=== PATIENT | female | born 1995 | race Caucasian/White ===

== ENCOUNTER → 2020-06-13 | Outpatient (CLI) | payer BC ==
[2020-06-13 14:35] LABS: Basophils % (A) 0 %; Eosinophils # (A) 0.1 k/uL (0-0.7); Eosinophils % (A) 0 %; HCT 40.8 % (34.0-46.0); HGB 13.4 gm/dL (11.4-16.0); Lymphocytes # (A) 1.6 k/uL (1.0-4.8); Lymphocytes % (A) 10 %; MCH 29.3 pg (25.0-35.0); MCHC 32.7 g/dL (31.0-37.0); MCV 89.6 fL (80.0-100.0); Mean Platelet Volume 7.6; Monocytes # (A) 0.4 k/uL (0-1.0); Monocytes % (A) 3 %; Neutrophils # (A) 13.5 k/uL (1.3-7.7); Neutrophils % (A) 86 %; Platelet Count 257 k/uL (150-450); RBC 4.55 m/uL (3.80-5.40); RDW 12.7 % (11.5-15.5); WBC 15.7 k/uL (3.8-10.6)
[2020-06-13 20:47] LABS: Gliadin AB IgA, Deaminated NEGATIVE (NEGATIVE); Gliadin AB IgA, Unit 8.1 U/mL; Gliadin AB IgG, Deaminated NEGATIVE (NEGATIVE)
== END | disposition home or self-care (01) ==
LOC: LABWHC1 13:33
PROVIDERS: ATTEND Allergy & Immunology
DX: T78.2XXA Anaphylactic shock, unspecified, initial encounter (principal); R19.7 Diarrhea, unspecified; R10.9 Unspecified abdominal pain
CPT/HCPCS: 36415; 82784; 82785; 83516; 83520; 85025

== ENCOUNTER 2021-04-14 19:23 | Outpatient (CLI) | payer BC, MEDICAID ==
[2021-04-14 19:47] LABS: Appearance,Urine Cloudy (Clear); Bacteria,Urine Occasional /hpf; Bilirubin,Urine Negative (Negative); Blood,Urine Negative (Negative); Color,Urine Yellow; Glucose,Urine (UA) Negative (Negative); Hyaline Casts,Urine 1 /lpf (0-2); Ketones,Urine Negative (Negative); Leukocyte Esterase,Urine Small (Negative); Mucus,Urine Few /hpf; Nitrite,Urine Negative (Negative); PH, Urine 6.5 (5.0-8.0); Protein,Urine Trace (Negative); RBC,Urine 2 /hpf (0-5); Specific Gravity,Urine 1.021 (1.001-1.035); Squamous Epithelial Cell,Urine 4 /hpf (0-4); Urobilinogen,Urine <2.0 mg/dL (<2.0); WBC,Urine 4 /hpf (0-5)
[2021-04-14 20:45] VITALS: BP 128/72; PULSE 76; RESP 16; TEMP 96.3
--- NOTE | 2021-04-26 10:56 | P.MSEPDOC ---
Presenting Problems - Arrival Data Date of Arrival on Unit: 04/14/21 Time of Arrival on Unit: 19:23 Mode of Transport: Ambulatory - Complaint OB-Reason for Admission/Chief Complaint: Pain Comment: Patient arrives to triage with complaints of right lower abdominal cramping. since 1744. Patient had called and spoke to Dr. Malcolm. Dr. Malcolm would like a UA sent and a NST and then to be called with results. Medical History - Information : 1 Para: 0 Term: 0 : 0 Abortions: Spontaneous or Elective: 0 Number of Living Children: 0 - Gestational Age Gestational Age by BUDDY (wks/days): 32 Weeks and 6 Days - History Sexually Transmitted Diseases: HSV Review of Systems - Review of Systems Constitutional: No problems Breast: No problems ENT: No problems Cardiovascular: No problems Respiratory: No problems Gastrointestinal: No problems Genitourinary: No problems Musculoskeletal: No problems Neurological: No problems Skin: No problems Vital Signs - Temperature Temperature: 96.3 F Temperature Source: Temporal Artery Scan - Pulse Right Brachial Pulse Rate: 76 Pulse Assessment Method: Automatic Cuff - Respirations Respiratory Rate: 16 Oxygen Delivery Method: Room Air O2 Sat by Pulse Oximetry: 100 - Blood Pressure Right Arm Blood Pressure: 128/72 Blood Pressure Mean: 90 Blood Pressure Source: Automatic Cuff Medical Screen Scoring - Cervical Exam Dilation (cm): 0 Membranes: Intact - Assessment - Baby A Baseline FHR: 130 Heart Rate - NICHD Category: Category I (Normal) NST: Reactive Physician Notification - Physician Notified Physician Notified Date: 04/14/21 Physician Notified Time: 20:08 Physician: Vick Malcolm New Order Received: Yes Maternal Triage Index - Maternal Triage Index Presenting for scheduled procedure w/no complaint: No - Stat/Priority 1 Stat Priority 1: No - Urgent/Priority 2 Urgent Priority 2: No - Prompt/Priority 3 Prompt Priority 3: No - Non-Urgent/Priority 4 Non-Urgent Priority 4: Yes Criteria Met for Priority 4: Dr. Malcolm called RN for an update on patient.RN relayed that patient was. having some irritiability on the monitor and a initial slightly elevated blood pressure on arrivial. Subsequent blood pressures have been normal. RN still waiting on urinalysis results. Dr. Malcolm would like a FFN to be collected. If cervix is closed, patient may be discharged home with waiting for results. If cervix was dilitated he would likethe patient to stay for results. UA results read. Cervix closed and thick. Patient to be discharged Disposition - Disposition OB Disposition: Discharge to home Discharge Date: 04/14/21 Discharge Time: 20:30 I agree with the RN Medical Screening Exam: Yes Physician's MSE Comment: I have neither seen nor examined the patient. It Case reviewed; plan agreed upon as documented in EMR&OBIX.: Yes Diagnosis: RELATED CONDITIONS, UNSPECIFIED, THIRD TRIMESTER
== END 2021-04-14 20:30 | disposition home or self-care (01) ==
LOC: FBPOP 19:23
PROVIDERS: ATTEND Obstetrics & Gynecology
DX: O26.93 Pregnancy related conditions, unspecified, third trimester (principal); Z3A.32 32 weeks gestation of pregnancy
CPT/HCPCS: 59025; 81001; 82731; 99213

== ENCOUNTER 2021-05-08 09:51 | Outpatient (CLI) | payer OTHER ==
[2021-05-08] MEDS ORDERED: DEXTROSE 5%-LACTATED RINGERS 1,000 ML IV SCH (10:30)
[2021-05-08 10:37] LABS: Appearance,Urine Cloudy (Clear); Bacteria,Urine Occasional /hpf; Bilirubin,Urine Negative (Negative); Blood,Urine Negative (Negative); Color,Urine Yellow; Glucose,Urine (UA) Negative (Negative); Ketones,Urine Trace (Negative); Leukocyte Esterase,Urine Small (Negative); Mucus,Urine Many /hpf; Nitrite,Urine Negative (Negative); PH, Urine 6.5 (5.0-8.0); Protein,Urine Trace (Negative); Specific Gravity,Urine 1.021 (1.001-1.035); Squamous Epithelial Cell,Urine 10 /hpf (0-4); Urobilinogen,Urine <2.0 mg/dL (<2.0); WBC,Urine 4 /hpf (0-5)
[2021-05-08 12:01] VITALS: BP 135/78; PULSE 87; RESP 18; TEMP 97.1
--- NOTE | 2021-05-12 19:00 | P.MSEPDOC ---
Presenting Problems - Arrival Data Date of Arrival on Unit: 05/08/21 Time of Arrival on Unit: 09:51 Mode of Transport: Ambulatory - Complaint OB-Reason for Admission/Chief Complaint: Acute Nausea/Vomiting Comment: pt states she has been having episodes of nausea/emesis/diarrhea since 0100 today, no episodes noted in triage Medical History - Information : 1 Para: 0 Term: 0 : 0 Abortions: Spontaneous or Elective: 0 Number of Living Children: 0 - Gestational Age Gestational Age by BUDDY (wks/days): 36 Weeks and 2 Days Review of Systems - Review of Systems Constitutional: No problems Breast: No problems ENT: No problems Cardiovascular: No problems Respiratory: No problems Gastrointestinal: Diarrhea Genitourinary: No problems Musculoskeletal: No problems Neurological: No problems Skin: No problems Vital Signs - Temperature Temperature: 97.1 F Temperature Source: Oral - Pulse Right Brachial Pulse Rate: 87 Pulse Assessment Method: Automatic Cuff - Respirations Respiratory Rate: 18 Oxygen Delivery Method: Room Air - Blood Pressure Right Arm Blood Pressure: 135/78 Blood Pressure Mean: 97 Blood Pressure Source: Automatic Cuff Medical Screen Scoring - Assessment - Baby A Baseline FHR: 135 Heart Rate - NICHD Category: Category I (Normal) NST: Reactive Physician Notification - Physician Notified Physician Notified Date: 05/08/21 Physician Notified Time: 10:30 Physician: Dr Lee New Order Received: Yes - Notification Comment Comment: d5lr bolus completed, pt denies further abd cramping/nausea/emesis/diarrhea Maternal Triage Index - Non-Urgent/Priority 4 Non-Urgent Priority 4: Yes Criteria Met for Priority 4: iv fluids initiated, pt reports decrease in nausea, no further episodes of emesis or diarrhea Disposition - Disposition OB Disposition: Physician follow up in office, Discharge to home, Written follow up instructions reviewed Discharge Date: 05/08/21 Discharge Time: 11:50 I agree with the RN Medical Screening Exam: Yes Case reviewed; plan agreed upon as documented in EMR&OBIX.: Yes Comments: Patient was neither seen nor examined by me. Diagnosis: LATE VOMITING OF
== END 2021-05-08 11:50 | disposition home or self-care (01) ==
LOC: FBPOP 09:51
PROVIDERS: ATTEND Obstetrics & Gynecology
DX: O21.2 Late vomiting of pregnancy (principal); Z3A.36 36 weeks gestation of pregnancy
CPT/HCPCS: 59025; 81001; 96360; 99214

== ENCOUNTER 2021-05-29 13:15 | Inpatient (IN) | payer MEDICAID, OTHER ==
[2021-05-29] MEDS ORDERED: TERBUTALINE 1 MG/ML VIAL SQ PRN (14:07)
[2021-05-29] MEDS ORDERED: METHYLERGONOVINE 0.2 MG/ML 1 ML AMP IM PRN (14:07)
[2021-05-29] MEDS ORDERED: CARBOPROST TROMETHAMINE 250 MCG/ML 1 ML AMP IM PRN (14:07)
[2021-05-29] MEDS ORDERED: OXYTOCIN 10 UNIT/ML 1 ML VIAL IM PRN (14:07)
[2021-05-29] MEDS ORDERED: LIDOCAINE 0.5% (PF) 5 MG/ML (50 ML SDV) SQ PRN (14:07)
[2021-05-29] MEDS ORDERED: OXYTOCIN 30 UNITS/500 ML NS 30 UNIT in SALINE 1 500ML.BAG IV SCH (14:15)
[2021-05-29] MEDS: LACTATED RINGERS 1,000 ML IV SCH ×3 (14:47→20:50)
[2021-05-29 15:25] LABS: Basophils % (A) 0 %; Eosinophils # (A) 0.2 k/uL (0-0.7); Eosinophils % (A) 1 %; Lymphocytes % (A) 19 %; MCH 30.2 pg (25.0-35.0); MCHC 33.3 g/dL (31.0-37.0); MCV 90.7 fL (80.0-100.0); Mean Platelet Volume 8.7; Monocytes # (A) 0.4 k/uL (0-1.0); Monocytes % (A) 4 %; Neutrophils # (A) 7.4 k/uL (1.3-7.7); Neutrophils % (A) 73 %; Platelet Count 210 k/uL (150-450); RDW 15.1 % (11.5-15.5); WBC 10.1 k/uL (3.8-10.6)
--- NOTE | 2021-05-29 20:00 | P.HPOB ---
History of Present Illness H&P Date: 05/29/21 Chief Complaint: IUP at 39 weeks, spontaneous rupture of membranes This is a 25-year-old 2 para 0010 at 39-2/7 weeks that presents to labor and delivery with complaints of spontaneous rupture of membranes around 11 AM. Patient noted the fluid to be clear in nature. Patient is noting a regular contractions initially. Patient presented to labor and delivery where rupture of membranes was confirmed. Patient did note good movement, denies vaginal bleeding. Patient is in receiving routine care which has been essentially uncomplicated. Group B strep cultures were noted to be negative. Review of Systems Constitutional: Denies fatigue, Denies fever Ears, nose, mouth and throat: Denies headache Cardiovascular: Reports leg edema Respiratory: Denies dyspnea Gastrointestinal: Denies constipation, Denies diarrhea, Denies nausea, Denies vomiting Genitourinary: Reports Past Medical History Past Medical History: No Reported History History of Any Multi-Drug Resistant Organisms: None Reported Past Surgical History: No Surgical Hx Reported Past Anesthesia/Blood Transfusion Reactions: No Reported Reaction Past Psychological History: No Psychological Hx Reported Smoking Status: Never smoker Past Alcohol Use History: None Reported Past Drug Use History: None Reported - Past Family History Father Family Medical History: No Reported History Medications and Allergies Home Medications Medication Instructions Recorded Confirmed Type Aspirin [Adult Low Dose Aspirin EC] 81 mg PO DAILY 04/14/21 05/29/21 History Pnv No.95/Ferrous Fum/Folic AC 1 each PO DAILY 04/14/21 05/29/21 History [ Multivitamin Tablet] Pyridoxine [Vitamin B-6] 50 mg PO DAILY 04/14/21 05/29/21 History valACYclovir HCL [Valtrex] 1,000 mg PO DAILY 05/08/21 05/29/21 History Allergies Allergy/AdvReac Type Severity Reaction Status Date / Time No Known Allergies Allergy Verified 05/29/21 13:54 Exam Osteopathic Statement: *. No significant issues noted on an osteopathic structural exam other than those noted in the History and Physical/Consult. 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 heart tones returned be category 1, she was marimar irregularly. Results Result Diagrams: 05/29/21 15:08 Assessment and Plan (1) 39 weeks gestation of Current Visit: Yes Status: Acute Code(s): Z3A.39 - 39 WEEKS GESTATION OF SNOMED Code(s): 07620345 (2) SROM (spontaneous rupture of membranes) Current Visit: Yes Status: Acute Code(s): RTY3447 - SNOMED Code(s): 157666615 Plan: 25-year-old at 39-2/7 weeks that presents to labor and delivery with complaints of spontaneous rupture of membranes 11 AM. Patient is admitted to labor and delivery and Pitocin augmentation of labor is begun. Options for analgesia are discussed quitting Stadol and epidural. Patient will consider.
[2021-05-29] MEDS ORDERED: ROPIVACAINE 5MG/ML 20ML VIAL ONE (20:20)
[2021-05-29] MEDS ORDERED: SODIUM CHLORIDE 0.9% 100 ML BAG ONE (20:20)
[2021-05-29] MEDS ORDERED: fentaNYL (PF) 50 MCG/ML 5 ML AMP ONE (20:20)
[2021-05-30] MEDS ORDERED: CITRIC ACID-SODIUM CITRATE 15 ML CUP PO ONE (01:43)
[2021-05-30] MEDS ORDERED: PROPOFOL 10 MG/ML 20 ML VIAL IV ONE (02:09)
[2021-05-30] MEDS ORDERED: OXYTOCIN 30 UNITS/500 ML NS BAG IV ONE (02:09)
[2021-05-30] MEDS ORDERED: MORPHINE SULFATE (PF) 0.3 MG/0.3 ML SYR ONE (02:09)
[2021-05-30] MEDS ORDERED: SUCCINYLCHOLINE CHLORIDE 100 MG/5 ML SYR IV ONE (02:09)
[2021-05-30] MEDS ORDERED: CHLOROPROCAINE 3% 30 MG/ML 20 ML VIAL ONE (02:09)
[2021-05-30] MEDS ORDERED: MIDAZOLAM 2 MG/2 ML VIAL ONE (02:09)
[2021-05-30] MEDS ORDERED: diphenhydrAMINE 50 MG/ML 1 ML VIAL IVP PRN ×2 (02:59)
[2021-05-30] MEDS ORDERED: SIMETHICONE 80 MG CHEWABLE PO PRN (02:59)
[2021-05-30] MEDS ORDERED: diphenhydrAMINE 25 MG CAP PO PRN (02:59)
[2021-05-30] MEDS ORDERED: ONDANSETRON 4 MG/2 ML VIAL IVP PRN (02:59)
[2021-05-30] MEDS ORDERED: ZOLPIDEM 5 MG TAB PO PRN (02:59)
[2021-05-30] MEDS ORDERED: HYDROmorphone 1 MG/ML 1 ML SYRINGE IVP PRN (02:59)
[2021-05-30] MEDS ORDERED: NALOXONE 0.4 MG/ML 1 ML VIAL IV PRN (02:59)
[2021-05-30] MEDS ORDERED: METOCLOPRAMIDE 5 MG/ML 2 ML VIAL IVP PRN (02:59)
[2021-05-30] MEDS ORDERED: diphenhydrAMINE 50 MG CAP PO PRN (02:59)
[2021-05-30] MEDS ORDERED: OXYTOCIN 30 UNITS/500 ML NS 30 UNIT in SALINE 1 500ML.BAG IV SCH (03:00)
--- NOTE | 2021-05-30 03:06 | P.OP ---
Date of Procedure: 05/30/21 Preoperative Diagnosis: IUP at 39-2/7 weeks, spontaneous rupture of membranes, arrest of descent Postoperative Diagnosis: Same Procedure(s) Performed: Primary low transverse section Anesthesia: LUKAS Surgeon: Mavis Cintron Administration Specialist #1: Artemio Orta Estimated Blood Loss (ml): 560 IV fluids (ml): 800 Urine output (ml): 150 Pathology: none sent Condition: stable Disposition: PACU Indications for Procedure: 25-year-old at 39-2/7 weeks that presented to labor and delivery for spontaneous rupture of membranes. Patient progressed through labor becoming complete. After approximately one half hours no descent of the head was appreciated with pushing. Patient was counseled on primary secondary to arrest of descent. Patient was agreeable and taken back to the operating suite for primary . Operative Findings: Viable female infant delivered at 228, weight of 10 lbs. 2 oz. and Apgars of 8 and 9 at one and 5 minutes respectively. Normal uterus tubes and ovaries were appreciated. Description of Procedure: Patient was taken back to the operating suite where epidural anesthesia was found be inadequate therefore general anesthesia was obtained without difficulty by the anesthesia department. She was prepped and draped in normal sterile fashion in the dorsal supine position. Pfannenstiel skin incision was made the scalpel and carried through the underlying layer of fascia. Fascia incised midline and the incision was extended laterally. The superior aspect of the fascial incision was then grasped jenna clamps, elevated and underlying rectus muscles dissected off sharply. Attention was then turned the inferior aspect of fascial incision which was grasped jenna clamps, elevated and underlying rectus muscles dissected off sharply. The incision was then extended superiorly and inferiorly with good visualization the bladder. Bladder blade was inserted. The vesicouterine peritoneum was identified and a bladder flap was created using sharp and blunt dissection. A scalpel was used to made a hysterotomy incision the was delivered in an occiput posterior presentation and delivered in the usual fashion. The umbilical cord was doubly clamped and cut and the was handed off to awaiting RN. The placenta was delivered manually and the uterus was cleared of all clots and debris. Uterus was delivered from the abdomen. The uterine incision was closed 0 Vicryl in a running locked fashion. A second inverting suture was performed. Bleeding was noted on the right lateral side of the uterine incision a [id number]-jk-[id number] suture was used to obtain hemostasis. A area of bleeding was appreciated in the midportion of the uterine incision, therefore a [id number]-jp-rspgn suture of 0 Vicryl was used to obtain hemostasis. The hysterotomy incision was inspected and found be hemostatic. Uterus then returned to the abdomen. The gutters were cleared of all clots and debris. Once again the uterine incision was inspected and found to be hemostatic. Surgicel powder was placed along the uterine incision. The peritoneum was then loosely reapproximated. The rectus muscles were inspected and found be hemostatic. The fascia was then closed with 0 Vicryl in a running fashion from one lateral edge the midline and the other lateral edge the midline. The subcutaneous tissue was then irrigated found be hemostatic and closed with 3-0 Vicryl in a running fashion. The skin was then closed with 4-0 Vicryl in a subcuticular fashion. Steri-Strips and sterile dressings were applied. All counts were noted be correct 2 at the end of the procedure. Patient and tolerated delivery well and are resting comfortably.
[2021-05-30] MEDS: ACETAMINOPHEN IV (For NPO) 1,000 MG in EMPTY BAG 1 BAG IVPB SCH ×2 (04:09→12:03)
[2021-05-30] MEDS: LACTATED RINGERS 1,000 ML IV SCH ×2 (04:11→12:03)
[2021-05-30] MEDS: ACETAMINOPHEN TAB 500 MG TAB PO SCH ×3 (06:00→18:25)
[2021-05-30] MEDS: IBUPROFEN IV 800 MG in SODIUM CHLORIDE 0.9% 250 ML IV SCH ×3 (08:19→12:04)
[2021-05-30] MEDS: PRENATAL VIT-IRON-FOLIC ACID 1 EACH CAP PO SCH (09:51)
[2021-05-30] MEDS: SENNOSIDES-DOCUSATE SODIUM 1 EACH TAB PO SCH ×2 (09:51→20:08)
[2021-05-30] MEDS: IBUPROFEN 600 MG TAB PO SCH ×3 (10:13→22:19)
--- NOTE | 2021-05-30 11:09 | P.PNOBGPC ---
Subjective - Subjective Principal diagnosis: POD 0 primary Interval history: Patient did well overnight. She states her pain is well-controlled. Fuentes remains. She is tolerating clear liquids without nausea or vomiting. Patient reports: Reports pain well controlled (Fuentes remains draining clear yellow urine) : doing well Objective - Vital Signs Latest vital signs: Vital Signs Temp Pulse Resp BP Pulse Ox 05/30/21 08:00 97.9 F 59 L 16 131/72 96 05/30/21 05:15 97.4 F L 62 16 132/69 99 05/30/21 04:41 70 16 133/74 98 05/30/21 04:15 61 16 125/71 98 05/30/21 04:00 73 16 129/73 98 05/30/21 03:42 79 16 129/67 97 05/30/21 03:30 65 16 130/71 98 05/30/21 03:15 97.8 F 88 16 126/70 98 05/29/21 15:12 96.8 F L 80 16 132/82 97 05/29/21 15:01 96.8 F L 80 16 132/82 Intake and Output 05/29/21 05/30/21 05/30/21 22:59 06:59 14:59 Output Total 1250 Balance -1250 Output: Urine 600 Estimated Blood Loss 650 Other: Voiding Method Indwelling Catheter # Voids 3 0 Weight 104.326 kg - Exam Extremities: Present: normal, edema Assessment and Plan (1) 39 weeks gestation of Current Visit: Yes Status: Acute Code(s): Z3A.39 - 39 WEEKS GESTATION OF SNOMED Code(s): 66982140 (2) SROM (spontaneous rupture of membranes) Current Visit: Yes Status: Acute Code(s): YMZ6175 - SNOMED Code(s): 169 611282 (3) Arrest of descent, delivered, current hospitalization Current Visit: Yes Status: Acute Code(s): O62.1 - SECONDARY UTERINE INERTIA SNOMED Code(s): 69324954 (4) S/P section Current Visit: Yes Status: Acute Code(s): Z98.891 - HISTORY OF UTERINE SCAR FROM PREVIOUS SURGERY SNOMED Code(s): 177129075 Plan: Patient is doing well postoperatively. We'll continue routine postoperative care. Fuentes to be discontinued this morning, advance diet as tolerated.
[2021-05-31] MEDS: ACETAMINOPHEN TAB 500 MG TAB PO SCH ×4 (00:54→19:20)
[2021-05-31] MEDS: IBUPROFEN 600 MG TAB PO SCH ×3 (04:20→16:32)
[2021-05-31 04:44] LABS: Basophils % (A) 0 %; Eosinophils # (A) 0.1 k/uL (0-0.7); Eosinophils % (A) 1 %; HCT 28.7 % (34.0-46.0); Lymphocytes # (A) 1.9 k/uL (1.0-4.8); Lymphocytes % (A) 16 %; MCH 30.9 pg (25.0-35.0); MCV 90.9 fL (80.0-100.0); Mean Platelet Volume 8.9; Monocytes # (A) 0.5 k/uL (0-1.0); Monocytes % (A) 4 %; Neutrophils # (A) 9.3 k/uL (1.3-7.7); Neutrophils % (A) 78 %; Platelet Count 177 k/uL (150-450); RBC 3.16 m/uL (3.80-5.40); RDW 15.1 % (11.5-15.5); WBC 11.9 k/uL (3.8-10.6)
[2021-05-31 04:50] LABS: HGB 9.8 gm/dL (11.4-16.0)
[2021-05-31] MEDS: SENNOSIDES-DOCUSATE SODIUM 1 EACH TAB PO SCH (07:41)
[2021-05-31] MEDS: PRENATAL VIT-IRON-FOLIC ACID 1 EACH CAP PO SCH (07:41)
[2021-05-31 07:52] VITALS: RESP 17; TEMP 98.7
--- NOTE | 2021-05-31 10:09 | P.DS ---
Providers Date of admission: 05/29/21 13:48 Expected date of discharge: 05/31/21 Attending physician: Patti Lee Primary care physician: Stated None - Discharge Diagnosis(es) (1) 39 weeks gestation of Current Visit: Yes Status: Acute (2) SROM (spontaneous rupture of membranes) Current Visit: Yes Status: Acute (3) Arrest of descent, delivered, current hospitalization Current Visit: Yes Status: Acute (4) S/P section Current Visit: Yes Status: Acute Hospital Course: This is a 26-year-old that presented to labor and delivery on 05/30 at 39- 2/7 weeks with complaints of spontaneous rupture of membranes. Patient states her water broke around 11 AM. Patient states the fluid was clear in nature. Patient had been receiving routine care which had been essentially uncomplicated. For full details on this patient please see the dictated history and physical. Patient was admitted to labor and delivery and Pitocin augmentation of labor was begun. Patient made progress through labor eventually becoming uncomfortable and did request epidural placement. Epidural was placed without difficulty by the anesthesia department. Patient progressed through labor eventually becoming complete and began pushing. After proximal plane 1- 1/2 hours of pushing minimal descent of the head was appreciated. At this time decision to proceed with primary was made. Discussion with patient regarding lack of descent of the head after over now her of pushing. Patient stated understanding and patient was taken back to the operating suite. Primary was performed without difficulty. For full details on the please see the operative report. Patient delivered a viable female infant at 228, weight of 10 lbs. 2 oz. and Apgars of 8 and 9 at one and 5 minutes respectively. Patient's postoperative course has been essentially uneventful. On this postoperative day #1 she is ambulating and voiding without difficulty. She states her pain is well-controlled. She is bottle feeding. Patient Condition at Discharge: Good Plan - Discharge Summary New Discharge Prescriptions: No Action Pyridoxine [Vitamin B-6] 50 mg PO DAILY Aspirin [Adult Low Dose Aspirin EC] 81 mg PO DAILY valACYclovir HCL [Valtrex] 1,000 mg PO DAILY Pnv No.95/Ferrous Fum/Folic AC [ Multivitamin Tablet] 1 each PO DAILY Discharge Medication List Aspirin [Adult Low Dose Aspirin EC] 81 mg PO DAILY 04/14/21 [History] Pnv No.95/Ferrous Fum/Folic AC [ Multivitamin Tablet] 1 each PO DAILY 04/14/21 [History] Pyridoxine [Vitamin B-6] 50 mg PO DAILY 04/14/21 [History] valACYclovir HCL [Valtrex] 1,000 mg PO DAILY 05/08/21 [History] Follow up Appointment(s)/Referral(s): Patti Lee MD [STAFF PHYSICIAN] - 2 Weeks Patient Instructions/Handouts: (DC), (GEN) Discharge Disposition: HOME SELF-CARE
[2021-05-31] MEDS: HYDROcodone/APAP 5-325MG 1 EACH TAB PO PRN ×2 (12:08→18:46)
[2021-05-31 15:22] VITALS: BP 129/87; PULSE 80
--- NOTE | 2021-05-31 16:29 | P.PN ---
Progress Note - Text Progress Note Date: 05/31/21 ([id number]) Anesthesia Postop day 1 Subjective: Status Post section with Duramorph. Caregiver provided answers. . Doing well without complaint. Pain was mild overnight. Rested comfortably. No nausea vomiting or pruritus. Denied fever. Gross lower extremity strength intact. . Without apparent anesthetic complications. Objective: Vital signs reviewed Assessment: Status post with Duramorph postop day 1 Plan: Continue current care with your medical management.
== END 2021-05-31 19:33 | disposition home or self-care (01) | DRG 788 ==
LOC: FBPOP 13:15 → 4FBP 13:48
PROVIDERS: ADMIT Obstetrics & Gynecology Obstetrics; ATTEND Obstetrics & Gynecology
PROC: 10D00Z1 Extraction of Products of Conception, Low, Open Approach (ICD-10-PCS; principal; 2021-05-30 02:46)
DX: O62.1 Secondary uterine inertia (principal); Z37.0 Single live birth; Z3A.39 39 weeks gestation of pregnancy; Z79.82 Long term (current) use of aspirin
CPT/HCPCS: 59025; 85025; 86850; 86900; 86901; 99213

== ENCOUNTER 2023-08-05 20:52 | Outpatient (CLI) | payer OTHER ==
[2023-08-05 21:34] VITALS: BP 116/66; PULSE 85; RESP 18; TEMP 97.2
--- NOTE | 2023-09-01 10:48 | P.MSEPDOC ---
Presenting Problems - Arrival Data Date of Arrival on Unit: 08/05/23 Time of Arrival on Unit: 20:52 Mode of Transport: Wheelchair - Complaint OB-Reason for Admission/Chief Complaint: Other Comment: Lower abdominal tightening every few minutes since 1899 Medical History - Information : 3 Para: 1 Term: 1 : 0 Abortions: Spontaneous or Elective: 1 Number of Living Children: 1 - Gestational Age Gestational Age by BUDDY (wks/days): 33 Weeks and 5 Days - History Complications: Prior Review of Systems - Review of Systems Constitutional: No problems Breast: No problems ENT: No problems Cardiovascular: No problems Respiratory: No problems Gastrointestinal: No problems Genitourinary: No problems Musculoskeletal: No problems Neurological: No problems Skin: No problems Vital Signs - Temperature Temperature: 97.2 F Temperature Source: Temporal Artery Scan - Pulse Pulse Oximetery Pulse Rate: 85 Pulse Assessment Method: Pulse Oximetry - Respirations Respiratory Rate: 18 Oxygen Delivery Method: Room Air O2 Sat by Pulse Oximetry: 97 - Blood Pressure Right Arm Blood Pressure: 116/66 Blood Pressure Mean: 82 Blood Pressure Source: Automatic Cuff Medical Screen Scoring - Cervical Exam Dilation (cm): 0 Membranes: Intact - Assessment - Baby A Baseline FHR: 135 Heart Rate - NICHD Category: Category I (Normal) NST: Reactive Physician Notification - Physician Notified Physician Notified Date: 08/05/23 Physician Notified Time: 21:08 Physician: Dr. Cintron New Order Received: Yes - Notification Comment Comment: Dr. Cintron notified of pt's arrival to triage with c/o tightening since 1899. Pt. had called Dr. Cintron prior to arriving so she was aware of the situation. Orders for RN. to orally hydrate pt, check her cervix, and monitor for 30 minutes or until a reactive. NST is obtained. If SVE is closed and no UC's are graphed/palpated while monitoring, pt. okay to D/C home. Maternal Triage Index - Maternal Triage Index Presenting for scheduled procedure w/no complaint: No - Stat/Priority 1 Stat Priority 1: No - Urgent/Priority 2 Urgent Priority 2: Yes Provider Notified: Mavis Cintron Provider Notified Time: 21:08 Criteria Met for Priority 2: Pt is a with BUDDY [birth year] here at 33.5 weeks of gestation with c/o. abdominal tightening since 1900 following work. 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 Pt denies any trauma or. injury, just reports physical exertion during the episode in order to keep her client. safe. Pt rates the pain 5-6/10 on a 0-10 scale. Disposition - Disposition OB Disposition: Triage Discharge Date: 08/05/23 Discharge Time: 22:10 I agree with the RN Medical Screening Exam: Yes Case reviewed; plan agreed upon as documented in EMR&OBIX.: Yes Diagnosis: FALSE LABOR BEFORE 37 COMPLETED WEEKS OF GEST, THIRD TRI
== END 2023-08-05 22:10 | disposition home or self-care (01) ==
LOC: FBPOP 20:52
PROVIDERS: ATTEND Obstetrics & Gynecology Obstetrics
DX: O47.03 False labor before 37 completed weeks of gestation, third trimester (principal); Z3A.33 33 weeks gestation of pregnancy
CPT/HCPCS: 59025; 99213

== ENCOUNTER 2023-08-26 19:00 | Outpatient (CLI) | payer BC ==
[2023-08-26] MEDS: LACTATED RINGERS 1,000 ML IV SCH ×2 (20:20→22:51)
[2023-08-26] MEDS ORDERED: TERBUTALINE 1 MG/ML VIAL SQ STA ×3 (21:53→22:46)
[2023-08-27 01:46] VITALS: BP 127/72; PULSE 64; RESP 15; TEMP 96.7
--- NOTE | 2023-09-29 06:29 | P.MSEPDOC ---
Presenting Problems - Arrival Data Date of Arrival on Unit: 08/26/23 Time of Arrival on Unit: 19:00 Mode of Transport: Ambulatory - Complaint OB-Reason for Admission/Chief Complaint: Rule Out SROM Comment: Patient arrived to triage thinking that her water broke yesterday 08/25/23 1800. Patient states she was in Dr. Menjivar office 08/25/23 and cervical check was undetermined. Patient states she has been leaking clear fluid since yesterday. Patient denies bleeding, sexual intercourse and denies pain. Medical History - Information : 3 Para: 1 Term: 0 : 0 Abortions: Spontaneous or Elective: 0 Number of Living Children: 0 - Gestational Age Gestational Age by BUDDY (wks/days): 36 Weeks and 6 Days - History Comment: Patient arrived to triage thinking that her water broke yesterday 08/25/23 1800. Patient states she was in Dr. Menjivar office 08/25/23 and cervical check was undetermined. Patient states she has been leaking clear fluid since yesterday. Patient denies bleeding, sexual intercourse and denies pain. Review of Systems - Review of Systems Constitutional: No problems Breast: No problems ENT: No problems Cardiovascular: No problems Respiratory: No problems Gastrointestinal: No problems Genitourinary: No problems Musculoskeletal: No problems Neurological: No problems Skin: No problems Vital Signs - Temperature Temperature: 96.7 F Temperature Source: Temporal Artery Scan - Pulse Pulse Oximetery Pulse Rate: 64 Pulse Assessment Method: Pulse Oximetry - Respirations Respiratory Rate: 15 Oxygen Delivery Method: Room Air O2 Sat by Pulse Oximetry: 96 - Blood Pressure Right Arm Blood Pressure: 127/72 Blood Pressure Mean: 90 Blood Pressure Source: Automatic Cuff Medical Screen Scoring - Uterine Contractions Frequency From (mins): 3 Frequency To (mins): 7 Intensity: Mild Resting: Soft to palpation - Assessment - Baby A Baseline FHR: 115 Heart Rate - NICHD Category: Category I (Normal) NST: Reactive Physician Notification - Physician Notified Physician Notified Date: 08/27/23 Physician Notified Time: 20:16 Physician: Sabrina Latham Order Received: Yes - Notification Comment Comment: Dr. Latham ordered 1L of LR and start IV, call back when fluid bolus is complete. Spoke with Dr. Latham regarding response to LR bolus, patients pain and contraction pattern. Dr. Latham ordered terbutaline protocol. Spoke with Dr. Latham regarding response to LR bolus, patients pain and contraction pattern. Dr. Latham ordered terbutaline protocol. Report given to Dr. Latham regarding patients contractions after terbutaline protocol, patient states she is feeling much better and can not feel contractions and denies pain. Dr. Latham is sending patient home and keep already scheduled appt with Dr. Cintron Maternal Triage Index - Prompt/Priority 3 Prompt Priority 3: Yes Criteria Met for Priority 3: Patient arrived to triage thinking that her water broke yesterday 08/25/23 1800. Patient states she was in Dr. Menjivar office 08/25/23 and cervical check was undetermined. Patient states she has been leaking clear fluid since yesterday. Patient denies bleeding, sexual intercourse and denies pain. Disposition - Disposition OB Disposition: Discharge to home Discharge Date: 08/27/23 Discharge Time: 23:35 I agree with the RN Medical Screening Exam: Yes Case reviewed; plan agreed upon as documented in EMR&OBIX.: Yes Diagnosis: rule out labor
== END 2023-08-26 23:35 | disposition home or self-care (01) ==
LOC: FBPOP 19:00
PROVIDERS: ATTEND Obstetrics & Gynecology
DX: O26.893 Other specified pregnancy related conditions, third trimester (principal); Z3A.36 36 weeks gestation of pregnancy
CPT/HCPCS: 59025; 99214; 96360; 96361; 96372; 84112; J3105; 36415; 99213

== ENCOUNTER 2023-09-12 10:19 | Inpatient (IN) | payer BC, OTHER ==
[2023-09-12] MEDS ORDERED: METHYLERGONOVINE 0.2 MG/ML 1 ML AMP IM PRN (10:49)
[2023-09-12] MEDS ORDERED: CARBOPROST TROMETHAMINE 250 MCG/ML 1 ML AMP IM PRN (10:49)
[2023-09-12] MEDS ORDERED: OXYTOCIN 10 UNIT/ML 1 ML VIAL IM PRN (10:49)
[2023-09-12] MEDS ORDERED: TRANEXAMIC 1,000 MG/100ML-NACL 1,000 MG in EMPTY BAG 1 BAG IV PRN (10:49)
[2023-09-12] MEDS ORDERED: miSOPROStoL 200 MCG TAB PO PRN (10:49)
[2023-09-12] MEDS ORDERED: CITRIC ACID-SODIUM CITRATE 15 ML CUP PO ONE (10:49)
[2023-09-12] MEDS ORDERED: OXYTOCIN 30 UNITS/500 ML NS 30 UNIT in SALINE 1 500ML.BAG IV SCH (11:00)
[2023-09-12] MEDS ORDERED: LACTATED RINGERS 1,000 ML IV SCH (11:15)
[2023-09-12 11:24] LABS: Basophils % (A) 0 %; Eosinophils # (A) 0.1 k/uL (0-0.7); Eosinophils % (A) 1 %; HCT 39.2 % (34.0-46.0); HGB 13.2 gm/dL (11.4-16.0); Lymphocytes # (A) 2.3 k/uL (1.0-4.8); Lymphocytes % (A) 22 %; MCH 30.3 pg (25.0-35.0); MCHC 33.5 g/dL (31.0-37.0); MCV 90.3 fL (80.0-100.0); Mean Platelet Volume 8.5; Monocytes # (A) 0.4 k/uL (0-1.0); Monocytes % (A) 4 %; Neutrophils # (A) 7.6 k/uL (1.3-7.7); Neutrophils % (A) 72 %; Platelet Count 208 k/uL (150-450); RBC 4.34 m/uL (3.80-5.40); RDW 13.8 % (11.5-15.5); WBC 10.5 k/uL (3.8-10.6)
[2023-09-12] MEDS ORDERED: ePHEDrine 50 MG/ML 1 ML VIAL ONE (11:59)
[2023-09-12] MEDS ORDERED: OXYTOCIN 30 UNITS/500 ML NS BAG IV ONE (11:59)
[2023-09-12] MEDS ORDERED: ONDANSETRON 4 MG/2 ML VIAL ONE (11:59)
[2023-09-12] MEDS ORDERED: MORPHINE SULFATE (PF) 0.3 MG/0.3 ML SYR ONE (11:59)
[2023-09-12] MEDS ORDERED: HYDROmorphone 0.5 MG/0.5 ML SYRINGE IVP PRN (12:51)
[2023-09-12] MEDS ORDERED: NALOXONE 0.4 MG/ML 1 ML VIAL IV PRN (12:51)
[2023-09-12] MEDS ORDERED: KETOROLAC 15 MG/ML 1 ML VIAL IVP PRN (12:51)
[2023-09-12] MEDS ORDERED: diphenhydrAMINE 50 MG/ML 1 ML VIAL IVP PRN ×3 (12:51→12:57)
[2023-09-12] MEDS ORDERED: ONDANSETRON 4 MG/2 ML VIAL IVP PRN (12:51)
--- NOTE | 2023-09-12 12:54 | P.HPOB ---
History of Present Illness H&P Date: 09/12/23 Chief Complaint: BP at 39 1/7 weeks, history of 1 desires repeat 28-year-old 011 at 39 and one sevenths weeks that presents to labor and delivery for scheduled repeat section. Patient has a prior history and elected repeat section. Patient has been receiving routine care which has been essentially uncomplicated. Patient has a known blood type of B+, rubella status immune, hep Marilyn surface engine negative, HIV negative, RPR is nonreactive, group beta strep cultures negative. Review of Systems Constitutional: Denies chills, Denies fatigue, Denies fever Ears, nose, mouth and throat: Denies headache Cardiovascular: Reports leg edema Respiratory: Denies dyspnea Gastrointestinal: Denies constipation, Denies diarrhea, Denies nausea, Denies vomiting Genitourinary: Reports Past Medical History Past Medical History: No Reported History History of Any Multi-Drug Resistant Organisms: None Reported Past Surgical History: Section Additional Past Surgical History / Comment(s): 2020 Past Anesthesia/Blood Transfusion Reactions: No Reported Reaction Past Psychological History: Anxiety Smoking Status: Never smoker Past Alcohol Use History: None Reported Past Drug Use History: None Reported - Past Family History Father Family Medical History: No Reported History Medications and Allergies Home Medications Medication Instructions Recorded Confirmed Type Aspirin [Adult Low Dose Aspirin EC] 81 mg PO DAILY 04/14/21 09/12/23 History Pnv No.95/Ferrous Fum/Folic AC 1 each PO DAILY 04/14/21 09/12/23 History [ Multivitamin Tablet] busPIRone HCL 5 mg PO BID 08/26/23 09/12/23 History Allergies Allergy/AdvReac Type Severity Reaction Status Date / Time No Known Allergies Allergy Verified 09/12/23 10:37 Exam Osteopathic Statement: *. No significant issues noted on an osteopathic structural exam other than those noted in the History and Physical/Consult. 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 Results Result Diagrams: 09/12/23 11:18 Assessment and Plan (1) H/O section Current Visit: Yes Status: Acute Code(s): Z98.891 - HISTORY OF UTERINE SCAR FROM PREVIOUS SURGERY SNOMED Code(s): 559715191 (2) 39 weeks gestation of Current Visit: No Status: Acute Code(s): Z3A.39 - 39 WEEKS GESTATION OF SNOMED Code(s): 95313197 Plan: 22 sexual at 39 and one sevenths weeks presents for repeat sect ion. Patient has a history of 1 for arrest of descent and desires repeat. Patient is counseled on risks of surgery including but not limited to infection, bleeding, damage to bladder, bowel, injury. Patient states understanding and wishes to proceed. Anesthesia and to see patient and proceed to operating suite.
--- NOTE | 2023-09-12 12:56 | P.OP ---
Date of Procedure: 09/12/23 Preoperative Diagnosis: IUP at 39 and one sevenths weeks, history of 1 desires repeat Postoperative Diagnosis: Same Procedure(s) Performed: Repeat section Anesthesia: spinal Surgeon: Mavis Cintron Lockstitch Collar Setter #1: Ava Ohara Estimated Blood Loss (ml): 668 IV fluids (ml): 1,300 Urine output (ml): 100 Pathology: none sent Condition: stable Disposition: observation Indications for Procedure: History of 1 desires repeat Operative Findings: Thin lower uterine segment, viable male infant delivered at 1221, weight of 9 lbs. 12 oz., Apgars of 9 and 9 at one and 5 minutes respectively. Description of Procedure: The patient was prepped and draped in the usual fashion after spinal anesthesia was administered by the anesthesia department. A Pfannenstiel incision was made and extended of the abdominal cavity without difficulty. The bladder peritoneum was elevated and incised and reflected distally. A 2 cm incision was made in the transverse plane of the lower uterine segment to enter the uterus at which time clear fluid was noted. The incision was extended in both directions using the bandage scissors. The head was encountered within the field and delivered up and through the incision where the nose and mouth were thoroughly suctioned. Remainder of the infant was delivered onto the surgical field where the cord was doubly clamped, cut, and the was passed for resuscitative measures with weight and Apgars as noted above. A segment of cord was then doubly clamped, cut, and set aside should cord gases become necessary. The placenta was delivered manually, intact, and was grossly normal with a grossly normal three-vessel cord. The uterus was exteriorized and the interior cavity of the uterus swept of any remaining placental and membranous fragments with a laparotomy sponge. The margins of the incision were grasped with Allis clamps and the incision closed in 2 layers. First layer was a running locking layer of 0 Vicryl from margin to margin followed by a second layer of imbricating 0 from margin to margin. A very thin lower uterine segment was noted and care was t aken to repair with a second imbricating layer. Any small points of bleeding were then made hemostatic with the Bovie. Once hemostasis was achieved, the posterior cul-de-sac was suctioned with a guard and the uterine and ovarian findings are as noted above. The uterus was replaced within the abdominal cavity and the gutters swept of any remaining blood fluid or clot. The incision was again reexamined and hemostasis was noted to be excellent. Any small point of bleeding were made hemostatic with the Bovie. Once hemostasis was achieved the parietal peritoneum was loosely reapproximated. The layer of muscles were examined and made hemostatic with the Bovie. Attention was then turned to the fascia which was closed with 2 running stitches of 0 Vicryl proceeding from the lateral margins to the midpoint. The subcutaneous tissues were irrigated, made hemostatic with the Bovie, and reapproximated with a running stitch of 30 plain catgut. The skin was reapproximated with regular surgical richar. Estimated blood loss for the case was approximately 668 mL. All sponge instrument and needle counts are correct. There were no complications. The patient tolerated the procedure well and proceeded to the recovery room in stable condition. Both mother and are resting comfortably in recovery.
[2023-09-12] MEDS ORDERED: diphenhydrAMINE 50 MG CAP PO PRN (12:57)
[2023-09-12] MEDS ORDERED: ZOLPIDEM 5 MG TAB PO PRN (12:57)
[2023-09-12] MEDS ORDERED: SIMETHICONE 80 MG CHEWABLE PO PRN (12:57)
[2023-09-12] MEDS ORDERED: METOCLOPRAMIDE 5 MG/ML 2 ML VIAL IVP PRN (12:57)
[2023-09-12] MEDS ORDERED: diphenhydrAMINE 25 MG CAP PO PRN (12:57)
[2023-09-12] MEDS: ACETAMINOPHEN TAB 500 MG TAB PO SCH (15:33)
[2023-09-12] MEDS: LACTATED RINGERS 1,000 ML IV SCH (16:52)
[2023-09-12] MEDS ORDERED: ACETAMINOPHEN IV (For NPO) 1,000 MG in EMPTY BAG 1 BAG IVPB SCH ×2 (18:00→22:00)
[2023-09-12] MEDS: IBUPROFEN IV 800 MG in SODIUM CHLORIDE 0.9% 250 ML IV SCH (18:46)
[2023-09-12] MEDS: SENNOSIDES-DOCUSATE SODIUM 1 EACH TAB PO SCH (21:09)
[2023-09-12] MEDS: IBUPROFEN 600 MG TAB PO SCH (22:37)
[2023-09-13] MEDS: IBUPROFEN IV 800 MG in SODIUM CHLORIDE 0.9% 250 ML IV SCH (00:33)
[2023-09-13] MEDS: LACTATED RINGERS 1,000 ML IV SCH ×2 (02:19→06:02)
[2023-09-13] MEDS: ACETAMINOPHEN TAB 500 MG TAB PO SCH ×4 (02:20→18:58)
[2023-09-13] MEDS: IBUPROFEN 600 MG TAB PO SCH ×4 (06:01→23:49)
[2023-09-13 06:31] LABS: Basophils % (A) 0 %; Eosinophils % (A) 0 %; HCT 31.8 % (34.0-46.0); HGB 10.9 gm/dL (11.4-16.0); Lymphocytes # (A) 1.8 k/uL (1.0-4.8); Lymphocytes % (A) 13 %; MCH 31.1 pg (25.0-35.0); MCHC 34.4 g/dL (31.0-37.0); MCV 90.6 fL (80.0-100.0); Mean Platelet Volume 8.7; Monocytes # (A) 0.6 k/uL (0-1.0); Monocytes % (A) 5 %; Neutrophils # (A) 11.1 k/uL (1.3-7.7); Neutrophils % (A) 80 %; Platelet Count 162 k/uL (150-450); RBC 3.51 m/uL (3.80-5.40); RDW 13.8 % (11.5-15.5); WBC 13.8 k/uL (3.8-10.6)
[2023-09-13] MEDS: SENNOSIDES-DOCUSATE SODIUM 1 EACH TAB PO SCH ×2 (08:17→21:21)
--- NOTE | 2023-09-13 08:23 | P.PN ---
Progress Note - Text Progress Note Date: 09/13/23 Patient seen at 0658 am. She is POD #1 C/S with SAB and intrathecal duramorph for post-op pain management. She is upright and ambulating without difficulty. Reports a VAS 2/10. Denies prurities, lower extremity weakness/paresthesias, denies headache and changes in vision. Discharge to home today per patient. Will follow up as indicated.
[2023-09-13] MEDS ORDERED: PRENATAL VIT-IRON-FOLIC ACID 1 EACH TABLET PO SCH (09:00)
--- NOTE | 2023-09-13 09:32 | P.PNOBGPC ---
Subjective - Subjective Principal diagnosis: Postop day 1, repeat section Interval history: Patient is doing well postoperatively. She is ambulating and voiding without difficulty. Her lochia is minimal. She is breast-feeding without difficulty. She states her pain is well-controlled. Patient reports: Reports appetite normal, Reports voiding normally, Reports pain well controlled, Reports ambulating normally [place]: doing well, nursing well Objective - Vital Signs Latest vital signs: Vital Signs Temp Pulse Resp BP Pulse Ox 09/13/23 08:00 97.9 F 84 16 111/59 09/13/23 04:00 98.0 F 76 16 107/65 97 09/13/23 00:00 98.0 F 96 16 107/62 96 09/12/23 20:00 98.7 F 68 16 120/68 09/12/23 17:00 15 09/12/23 14:55 98.0 F 77 16 112/57 09/12/23 14:25 63 17 104/52 09/12/23 13:55 67 16 105/56 97 09/12/23 13:40 73 16 116/56 99 09/12/23 13:25 74 16 124/58 97 09/12/23 13:10 87 17 121/66 97 09/12/23 12:55 96.9 F L 89 16 123/61 96 09/12/23 10:38 97.5 F L 87 16 118/67 98 Intake and Output 09/12/23 09/13/23 09/13/23 22:59 06:59 14:59 Intake Total 960 Output Total 1250 1200 Balance -290 -1200 Intake: Oral 960 Output: Urine 1150 1200 Uretheral (Fuentes) 850 Output, Quantitative 100 Blood Loss Other: # Voids 1 2 1 - Exam Extremities: Present: normal, edema Abdomen: Present: normal appearance, soft Incision: Present: normal, dry, intact Uterus: Present: normal, firm - Labs Labs: Abnormal Lab Results - Last 24 Hours (Table) 09/13/23 Range/Units 06:09 WBC 13.8 H (3.8-10.6) k/uL RBC 3.51 L (3.80-5.40) m/uL Hgb 10.9 L (11.4-16.0) gm/dL Hct 31.8 L (34.0-46.0) % Neutrophils # 11.1 H (1.3-7.7) k/uL Assessment and Plan (1) H/O section Current Visit: Yes Status: Acute Code(s): Z98.891 - HISTORY OF UTERINE SCAR FROM PREVIOUS SURGERY SNOMED Code(s): 258091205 (2) 39 weeks gestation of Current Visit: No Status: Acute Code(s): Z3A.39 - 39 WEEKS GESTATION OF SNOMED Code(s): 39910718 (3) S/P section Current Visit: No Status: Acute Code(s): Z98.891 - HISTORY OF UTERINE SCAR FROM PREVIOUS SURGERY SNOMED Code(s): 248439245 Plan: Patient is doing well postoperatively. We'll encourage increased ambulation. Anticipate discharge tomorrow.
[2023-09-14] MEDS: ACETAMINOPHEN TAB 500 MG TAB PO SCH ×2 (01:40→08:24)
[2023-09-14] MEDS: IBUPROFEN 600 MG TAB PO SCH (04:03)
--- NOTE | 2023-09-14 08:15 | P.DS ---
Providers Date of admission: 09/12/23 10:19 Expected date of discharge: 09/14/23 Attending physician: Mavis Cintron Primary care physician: Stated None - Discharge Diagnosis(es) (1) H/O section Current Visit: Yes Status: Acute (2) 39 weeks gestation of Current Visit: No Status: Acute (3) S/P section Current Visit: No Status: Acute Hospital Course: This is a 28-year-old 3 para 1011 that presented to labor and delivery at 39 and one sevenths weeks for scheduled repeat section. Patient receiving routine care which has been essentially uncomplicated. Patient a prior secondary to arrest of descent therefore requested repeat section. Patient was taken back to the operating room where repeat section was completed without difficulty. Patient delivered a viable male infant at 1221, weight of 9 lbs. 12 oz., Apgars of 9 and 9 at one and 5 minutes respectively. Patient's postoperative course has been uneventful. This postoperative day #2 she is ambulating and voiding without difficulty. She is tolerating a regular diet without nausea or vomiting. She states her pain is well-controlled. She denies concerns. She is breast-feeding without difficulty. Patient Condition at Discharge: Good Plan - Discharge Summary Discharge Rx Participant: No New Discharge Prescriptions: No Action Aspirin [Adult Low Dose Aspirin EC] 81 mg PO DAILY busPIRone HCL 5 mg PO BID Pnv No.95/Ferrous Fum/Folic AC [ Multivitamin Tablet] 1 each PO DAILY Discharge Medication List Aspirin [Adult Low Dose Aspirin EC] 81 mg PO DAILY 04/14/21 [History] Pnv No.95/Ferrous Fum/Folic AC [ Multivitamin Tablet] 1 each PO DAILY 04/14/21 [History] busPIRone HCL 5 mg PO BID 08/26/23 [History] Follow up Appointment(s)/Referral(s): Mavis Cintron DO [Doctor of Osteopathic Medicine] - 2 Weeks Patient Instructions/Handouts: (DC), (GEN) Activity/Diet/Wound Care/Special Instructions: No tub baths or intercourse until 6 weeks post . Patient is to call the office make a routine visit at 2 weeks. [id number] ibuprofen and Tylenol as needed for pain. Should she have any concerns prior to her appointment regarding incision or vaginal bleeding she is to call the office and be seen sooner. Discharge Disposition: HOME SELF-CARE
[2023-09-14] MEDS: SENNOSIDES-DOCUSATE SODIUM 1 EACH TAB PO SCH (08:24)
[2023-09-14 08:54] VITALS: BP 110/71; PULSE 69; RESP 16; TEMP 97.6
== END 2023-09-14 11:45 | disposition home or self-care (01) | DRG 788 ==
LOC: 4FBP 10:19
PROVIDERS: ADMIT Obstetrics & Gynecology Obstetrics; ATTEND Obstetrics & Gynecology Obstetrics
PROC: 10D00Z1 Extraction of Products of Conception, Low, Open Approach (ICD-10-PCS; principal; 2023-09-12 12:00)
DX: O34.211 Maternal care for low transverse scar from previous cesarean delivery (principal); F41.9 Anxiety disorder, unspecified; O99.344 Other mental disorders complicating childbirth; Z79.82 Long term (current) use of aspirin; Z3A.39 39 weeks gestation of pregnancy; Z37.0 Single live birth
CPT/HCPCS: 85025; 86850; 86900; 86901